=== PATIENT | female | born 1980 | race Caucasian/White ===

== ENCOUNTER → 2017-05-14 | Outpatient (CLI) | payer OTHER ==
[2016-03-28 09:40] VITALS: BP 108/81
[~2017-05-14] MED LIST: ALPR0.5T PO; MONT10TA9 PO; TAMS0.4C97 PO
--- NOTE | 2017-05-14 10:30 | RAD ---
HYSTEROSALPINGOGRAPHY, 05/14/2017 CLINICAL INDICATION: Prior tubal ligation with recent removal. PROCEDURE: The risks and benefits of hysterosalpingography were explained to the patient and written informed consent obtained. The external genitalia were prepped with Betadine. A speculum was introduced into the vagina and the cervix identified. After preparation with Betadine, a balloon tip catheter was placed through the cervical os and the balloon inflated just inside the endometrial cavity. Fluoroscopic spot images were obtained as water-soluble contrast was infused through the catheter. 5 cc of contrast were utilized. COMPARISON: CT abdomen and pelvis 03/28/2016 4 fluoroscopic spot images were obtained. Findings: Initial air brush operator radiograph demonstrates catheter projected over the central pelvis. Early filling images demonstrate only thin opacification of the endometrial canal and in the right flow pain tube to the level of the mid isthmus. Late filling images demonstrate similar opacification of the endotracheal canal and right fallopian tube with no progression of contrast beyond the mid isthmus level on the right. Throughout the examination there is no opacification of the left lobe in tube or spilling of contrast into the peritoneal cavity on either side. Patient left the department in stable condition. Impression: 1. Faint opacification of the endometrial canal and right fallopian tube to the mid isthmus level without opacification of the distal right fallopian tube and no evidence of peritoneal cavity spilling. 2. No opacification of the left fallopian tube throughout the examination.
== END | disposition home or self-care (01) ==
LOC: RAD 08:07
PROVIDERS: ATTEND Obstetrics & Gynecology
DX: Z09 Encounter for follow-up examination after completed treatment for conditions other than malignant neoplasm (principal); Z98.51 Tubal ligation status
CPT/HCPCS: 58340; 74740

== ENCOUNTER → 2017-07-18 | Outpatient (CLI) | payer OTHER ==
[2016-03-28 09:40] VITALS: BP 108/81
--- NOTE | 2017-07-18 15:24 | RAD ---
CERVICAL SPINE 2-3V AP, lateral, odontoid Clinical Indication: RADICULAR PAIN IN THE LEFT ARM X 5 MTHS Comparison: None. Findings: The cervical spine is visualized to the level of C7. Slight reversal of the normal cervical lordosis. No listhesis. Vertebral body heights and disc spaces are maintained. No significant soft tissue abnormality. IMPRESSION: 1. No acute cervical fracture or malalignment. 2. Slight reversal of the normal cervical lordosis. No listhesis.
== END | disposition home or self-care (01) ==
LOC: DXRADRC 12:00
PROVIDERS: ATTEND Physician Assistant
DX: M79.2 Neuralgia and neuritis, unspecified (principal)
CPT/HCPCS: 72040

== ENCOUNTER 2017-11-30 14:30 | Emergency (ER) | payer OTHER ==
[2017-11-30] MEDS: IV NORMAL SALINE 1,000ML 1,000 ML IV ONE (15:07)
[2017-11-30] MEDS: ONDANSETRON PF 4 MG/2 ML VIAL. IV ONE (15:08)
[2017-11-30] MEDS: KETOROLAC 30 MG/ML VIAL. IV ONE (15:10)
[2017-11-30 15:24] LABS: BASO # 0.1 x10^3/uL (0.0-0.2); BASO % 1 % (0-3); EOS # 0.2 x10^3/uL (0.0-0.7); EOS % 2 % (0-3); HEMATOCRIT 43.1 % (36.0-47.0); HEMOGLOBIN 15.1 g/dL (12.0-15.5); LYMPH % 35 % (24-48); MEAN CORPUSCULAR HEMOGLOBIN 32 pg (25-35); MEAN CORPUSCULAR HGB CONC 35 g/dL (31-37); MEAN CORPUSCULAR VOLUME 92 fL (79-100); MONO # 0.7 x10^3/uL (0.0-1.1); MONO % 8 % (0-9); NEUT # 4.8 x10^3uL (1.8-7.7); NEUT % 55 % (31-73); PLATELET COUNT 318 x10^3/uL (140-400); RED BLOOD COUNT 4.71 x10^6/uL (3.50-5.40); RED CELL DISTRIBUTION WIDTH 12.9 % (11.5-14.5); WHITE BLOOD COUNT 8.7 x10^3/uL (4.0-11.0)
[2017-11-30 15:34] LABS: CALCIUM 9.1 mg/dL (8.5-10.1); CREATININE 0.9 mg/dL (0.6-1.0); GFR 70.8; POTASSIUM 3.8 mmol/L (3.5-5.1)
--- NOTE | 2017-11-30 16:20 | RAD ---
EXAM: CT abdomen/pelvis without contrast. HISTORY: Left flank pain, renal stones. TECHNIQUE: Computed tomography of the abdomen and pelvis was performed without intravenous contrast. COMPARISON: 03/28/2016. FINDINGS: Lung windows through the visualized portions of the bases reveal mild atelectasis. Bone windows reveal no suspicious lesions. There is a stable bone island within the left femoral head. The appendix is not inflamed. A small amount of free pelvic fluid is likely physiologic. The uterus and ovaries are unremarkable by noncontrast CT. There is no obstruction. The liver, gallbladder, pancreas, and adrenal glands are unremarkable. There are calcified granulomas in the spleen. There are no pathologically enlarged lymph nodes. There is a 2 mm calculus in the left renal interpolar region. There is also 2 mm calculus at the left ureterovesical junction with mild proximal hydroureter. There are no right renal or ureteral calculi. IMPRESSION: 1. 2 mm left ureterovesical junction calculus with mild proximal obstructive findings. 2. 2 mm left renal calculus. *One or more of the following individualized dose reduction techniques were utilized for this examination: 1. Automated exposure control. 2. Adjustment of the mA and/or kV according to patient size. 3. Use of iterative reconstruction technique.
[2017-11-30] MEDS: HYDROmorphone PF 1 MG/ML DISP.SYRIN IV ONE (16:26)
[2017-11-30] MEDS ORDERED: TAMS0.4C97 PO (16:41)
[2017-11-30] MEDS ORDERED: ONDA4TAB10 SL (16:41)
[2017-11-30] MEDS ORDERED: HYDR-971 PO (16:41)
--- NOTE | 2017-11-30 16:41 | PHYS DOC ---
Past History Past Medical History: Kidney Stones Past Surgical History: Tubal ligation Smoking: Cigarettes Alcohol Use: None Drug Use: Marijuana Adult General Chief Complaint Chief Complaint: BACK PAIN OR INJURY HPI HPI Patient is a 37 year old F who presents with intermittent sharp left flank pain associated with blood in her urine. She has had previous kidney stones and feels that this pain is similar to her previous episodes. She also describes nausea. She has no other associated symptoms. She has no other exacerbating or relieving factors. Review of Systems Review of Systems Constitutional: Denies fever or chills [] Eyes: Denies change in visual acuity, redness, or eye pain [] HENT: Denies nasal congestion or sore throat [] Respiratory: Denies cough or shortness of breath [] Cardiovascular: No additional information not addressed in HPI [] GI: Denies abdominal pain, vomiting, bloody stools or diarrhea [] : Denies dysuria or hematuria [] Musculoskeletal: Negative except history of present illness Integument: Denies rash or skin lesions [] Neurologic: Denies headache, focal weakness or sensory changes [] Endocrine: Denies polyuria or polydipsia [] All other systems were reviewed and found to be within normal limits, except as documented in this note. Family History Family History No pertinent family medical history was reported Current Medications Current Medications Current Medications Medications (Trade) Dose Ordered Sig/[facility] Start Time Stop Time Status Last Admin Dose Admin Fentanyl Citrate (Fentanyl 2ml Vial) 50 mcg 1X ONCE 11/30/17 16:00 11/30/17 16:01 DC 11/30/17 15:49 50 MCG Hydromorphone HCl (Dilaudid) 0.5 mg 1X ONCE 11/30/17 16:30 11/30/17 16:31 DC 11/30/17 16:26 0.5 MG Ketorolac Tromethamine (Toradol) 30 mg 1X ONCE 11/30/17 15:00 11/30/17 15:12 DC 11/30/17 15:10 30 MG Ondansetron HCl (Zofran) 4 mg 1X ONCE 11/30/17 15:00 11/30/17 15:12 DC 11/30/17 15:08 4 MG Sodium Chloride 1,000 ml @ 1,000 mls/hr 1X ONCE 11/30/17 15:00 11/30/17 15:59 DC 11/30/17 15:07 1,000 MLS/HR Tamsulosin HCl (Flomax) 0.4 mg 1X ONCE 11/30/17 16:45 11/30/17 16:46 Allergies Allergies Allergies Coded Allergies Type Severity Reaction Last Updated Verified No Known Drug Allergies 03/16/14 No Physical Exam Physical Exam Constitutional: Well developed, well nourished, no acute distress, non-toxic appearance. [] Moderate distress with painful episodes HENT: Normocephalic, atraumatic, Eyes: PERRLA, EOMI, conjunctiva normal, no discharge. [] Neck: Normal range of motion, no tenderness, supple, no stridor. [] Cardiovascular:Heart rate regular rhythm Lungs & Thorax: Bilateral breath sounds clear to auscultation [] Abdomen: Bowel sounds normal, soft, no tenderness, no masses, no pulsatile masses. [] Skin: Warm, dry, no erythema, no rash. [] Back: No tenderness, no CVA tenderness. [] Extremities: No tenderness, no cyanosis, no clubbing, ROM intact, no edema. [] Neurologic: Alert and oriented X 3, normal motor function, normal sensory function, no focal deficits noted. [] Psychologic: Affect normal, judgement normal, mood normal. [] Current Patient Data Vital Signs Vital Signs Date Time Temp Pulse Resp B/P (MAP) Pulse Ox O2 Delivery O2 Flow Rate FiO2 11/30/17 14:40 97.7 109 18 97 Room Air Lab Results Laboratory Tests Test 11/30/17 15:00 11/30/17 15:08 POC Urine HCG, Qualitative hcg negative (Negative) White Blood Count 8.7 x10^3/uL (4.0-11.0) Red Blood Count 4.71 x10^6/uL (3.50-5.40) Hemoglobin 15.1 g/dL (12.0-15.5) Hematocrit 43.1 % (36.0-47.0) Mean Corpuscular Volume 92 fL (79-100) Mean Corpuscular Hemoglobin 32 pg (25-35) Mean Corpuscular Hemoglobin Concent 35 g/dL (31-37) Red Cell Distribution Width 12.9 % (11.5-14.5) Platelet Count 318 x10^3/uL (140-400) Neutrophils (%) (Auto) 55 % (31-73) Lymphocytes (%) (Auto) 35 % (24-48) Monocytes (%) (Auto) 8 % (0-9) Eosinophils (%) (Auto) 2 % (0-3) Basophils (%) (Auto) 1 % (0-3) Neutrophils # (Auto) 4.8 x10^3uL (1.8-7.7) Lymphocytes # (Auto) 3.0 x10^3/uL (1.0-4.8) Monocytes # (Auto) 0.7 x10^3/uL (0.0-1.1) Eosinophils # (Auto) 0.2 x10^3/uL (0.0-0.7) Basophils # (Auto) 0.1 x10^3/uL (0.0-0.2) Sodium Level 138 mmol/L (136-145) Potassium Level 3.8 mmol/L (3.5-5.1) Chloride Level 102 mmol/L (98-107) Carbon Dioxide Level 26 mmol/L (21-32) Anion Gap 10 (6-14) Blood Urea Nitrogen 15 mg/dL (7-20) Creatinine 0.9 mg/dL (0.6-1.0) Estimated GFR (Cockcroft-Gault) 70.8 Glucose Level 97 mg/dL (70-99) Calcium Level 9.1 mg/dL (8.5-10.1) EKG EKG [] Radiology/Procedures Radiology/Procedures CT abdomen and pelvis without contrast Impressions: 2 mm kidney stone at the left UVJ Course & Med Decision Making Course & Med Decision Making Pertinent Labs and Imaging studies reviewed. (See chart for details) [] Dragon Disclaimer Dragon Disclaimer This electronic medical record was generated, in whole or in part, using a voice recognition dictation system. Departure Departure: Impression: Primary Impression: Ureterolithiasis Disposition: 01 HOME, SELF-CARE Condition: STABLE Referrals: DELORES YBARRA (PCP) Patient Instructions: Kidney Stones Additional Instructions: Maria Teresa was seen in the emergency department for flank pain. No emergency medical condition was found on history or physical exam. She did have normal labs and imaging suggested 2 mm stone on the left side. She is given prescriptions for pain medication, nausea medication and Flomax. She is advised to return to the emergency room if she develops new or worsening symptoms. She was also advised follow-up with her primary care doctor as needed for further management. Scripts Ondansetron (ZOFRAN ODT) 4 Mg Tab.rapdis 1 TAB SL Q8HRS, #15 TAB Prov: BUZZ MOCK MD 11/30/17 Hydrocodone Bit/Acetaminophen (NORCO 5-325 TABLET) 1 Each Tablet 1 TAB PO TID for 3 Days, #9 TAB Prov: BUZZ MOCK MD 11/30/17 Tamsulosin Hcl (FLOMAX) 0.4 Mg Cap.er.24h 1 CAP PO DAILY for 14 Days, #14 CAP 11 Refills Prov: BUZZ MOCK MD 11/30/17 BUZZ MOCK MD Nov 30, 2017 16:41
[2017-11-30 16:52] VITALS: BP 118/89
[2017-11-30] MEDS: TAMSULOSIN 0.4 MG CAP.ER.24H. PO ONE (16:53)
== END 2017-11-30 17:00 | disposition home or self-care (01) ==
LOC: ER 14:30
DX: N20.2 Calculus of kidney with calculus of ureter (principal); F17.210 Nicotine dependence, cigarettes, uncomplicated; F12.10 Cannabis abuse, uncomplicated; Z87.442 Personal history of urinary calculi
CPT/HCPCS: 36415; 74176; 80048; 81025; 85025; 96361; 96374; 96375; 99285; J1170; J1885; J2405; J3010; J7030

== ENCOUNTER → 2019-03-17 | Outpatient (CLI) | payer OTHER ==
[~2019-03-17] MED LIST changes: +HYDR-3165 PO; +ONDA4TAB10 SL
--- NOTE | 2019-03-17 14:16 | RAD ---
Examination: Ultrasound pelvis HISTORY: History of pain prior to menses COMPARISON: None available. FINDINGS: The uterus measures 8.2 x 4.4 x 3.6 cm. Small nabothian cysts identified in the cervix. The right ovary measures 3.8 x 2.3 x 1.9 cm. The left ovary measures 5.6 x 3.4 x 2.2 cm. Blood flow identified in the right and left ovaries. There is a cystic structure identified in the left ovary measuring 1.9 cm. By 1.6 cm cyst identified in the right ovary. Minimal amount of fluid identified in the endometrium. IMPRESSION: 1. Cystic structures identified in the right and left ovaries probably follicles or small cysts. 2. Minimal fluid identified in the endometrium. Electronically signed by: Yaya Tipton MD (03/17/2019 2:13 PM) [place] [id number]
== END | disposition home or self-care (01) ==
LOC: US 09:22
PROVIDERS: ATTEND Obstetrics & Gynecology
DX: N88.8 Other specified noninflammatory disorders of cervix uteri (principal)
CPT/HCPCS: 76830; 76856

== ENCOUNTER 2019-05-07 07:02 | Emergency (ER) | payer OTHER ==
[~2019-05-07] VITALS: Ht 165.1 cm; Wt 85.0 kg
[~2019-05-07 07:02] MED LIST changes: +MONT10TA80 PO; -MONT10TA9 PO
--- NOTE | 2019-05-07 07:34 | PHYS DOC ---
Past History Past Medical History: Kidney Stones Past Surgical History: Tubal ligation Smoking: Cigarettes Alcohol Use: None Drug Use: Marijuana Adult General Chief Complaint Chief Complaint: VAGINAL BLEEDING HPI HPI 38-year-old female presents with vaginal bleeding. The patient had a hysterectomy and days ago. She had not had any postsurgical bleeding until yesterday. The amount of bleeding seems to be increasing. She is going through 1 super pad every hour to hour and a half at this time. The bleeding is bright red. She has been in contact with her surgeon, Dr. Brand. A CBC was performed yesterday. her Sunday told the patient he would like that repeated in the ED. The patient has a moderate cramping pain as well that has increased throughout the night. She is not sure if she's had a fever, but has had chills. Review of Systems Review of Systems Constitutional: Denies fever or chills [] Eyes: Denies change in visual acuity, redness, or eye pain [] HENT: Denies nasal congestion or sore throat [] Respiratory: Denies cough or shortness of breath [] Cardiovascular: No additional information not addressed in HPI [] GI: Lower abdominal pain. Denies nausea, vomiting, bloody stools or diarrhea [] : Vaginal bleeding [] Musculoskeletal: Denies back pain or joint pain [] Integument: Denies rash or skin lesions [] Neurologic: Denies headache, focal weakness or sensory changes [] Endocrine: Denies polyuria or polydipsia [] All other systems were reviewed and found to be within normal limits, except as documented in this note. Allergies Allergies Allergies Coded Allergies Type Severity Reaction Last Updated Verified No Known Drug Allergies 03/16/14 No Physical Exam Physical Exam Constitutional: Well developed, well nourished, mild acute distress, non-toxic appearance. [] HENT: Normocephalic, atraumatic, bilateral external ears normal, oropharynx moist, no oral exudates, nose normal. [] Eyes: PERRLA, EOMI, conjunctiva normal, no discharge. [] Neck: Normal range of motion, no tenderness, supple, no stridor. [] Cardiovascular:Heart rate regular rhythm, no murmur [] Lungs & Thorax: Bilateral breath sounds clear to auscultation [] Abdomen: Bowel sounds normal, soft, lower abdominal tenderness, no masses, no pulsatile masses. [] Skin: Warm, dry, no erythema, no rash. [] Back: No tenderness, no CVA tenderness. [] Extremities: No tenderness, no cyanosis, no clubbing, ROM intact, no edema. [] Neurologic: Alert and oriented X 3, normal motor function, normal sensory function, no focal deficits noted. [] Psychologic: Affect normal, judgement normal, mood normal. : [] EKG EKG [] Radiology/Procedures Radiology/Procedures [] Impressions: EXAM: ULTRASOUND PELVIS INDICATION: Hysterectomy and left oophorectomy 04/28/2019 COMPARISON: 03/17/2019 TECHNIQUE: Transabdominal sonography was performed. FINDINGS: There has been a hysterectomy. Within the expected operative bed there is a 9.6 x 8 x 7 cm hypoechoic structure with layering solid component and internal septations possibly complex fluid collection such as hematoma. No internal vascularity. The right ovary is not seen. IMPRESSION: 1. Pelvic collection measuring up to 9.6 cm with apparent layering internal echoes and internal septations may represent a complex collection such as hematoma. Abscess is not entirely excluded. This can be further assessed by CT as clinically indicated. Electronically signed by: Dakota Mooney MD (05/07/2019 9:02 AM) [facility] DICTATED AND SIGNED BY: DAKOTA MOONEY MD DATE: 05/07/19901 CC: AYUSH MARTINEZ DO; STEPHAN FALK MD ~ Course & Med Decision Making Course & Med Decision Making Pertinent Labs and Imaging studies reviewed. (See chart for details) The patient's hemoglobin has improved since yesterday. It is 10.3 today and it was 10.1 yesterday. She does not have a white count. She does not have a fever. Infection seems unlikely. I discussed the case with her surgeon, Dr. Brand and she has advised ultrasound. [id number] was performed and a large mass in the pelvis was found likely hematoma. This was Dr. Brand's suspicion due to the complex surgery was required for this patient. She has advised the patient can be discharged only followed closely by her office. I will give the patient a copy of her ultrasound for her records. She is stable for discharge at this time. [] Dragon Disclaimer Dragon Disclaimer This electronic medical record was generated, in whole or in part, using a voice recognition dictation system. Departure Departure: Impression: Primary Impression: Hematoma of pelvis Disposition: 01 HOME, SELF-CARE Condition: STABLE Referrals: STEPHAN FALK MD (PCP) Patient Instructions: Hematoma, [id number] AYUSH MARTINEZ DO May 07, 2019 07:34
[2019-05-07 08:02] LABS: BASO % 0 % (0-3); EOS # 0.1 x10^3/uL (0.0-0.7); EOS % 2 % (0-3); HEMATOCRIT 30.1 % (36.0-47.0); HEMOGLOBIN 10.3 g/dL (12.0-15.5); LYMPH # 1.4 x10^3/uL (1.0-4.8); LYMPH % 14 % (24-48); MEAN CORPUSCULAR HEMOGLOBIN 32 pg (25-35); MEAN CORPUSCULAR HGB CONC 34 g/dL (31-37); MEAN CORPUSCULAR VOLUME 95 fL (79-100); MONO # 0.9 x10^3/uL (0.0-1.1); MONO % 9 % (0-9); NEUT # 7.4 x10^3uL (1.8-7.7); NEUT % 75 % (31-73); PLATELET COUNT 356 x10^3/uL (140-400); RED BLOOD COUNT 3.18 x10^6/uL (3.50-5.40); RED CELL DISTRIBUTION WIDTH 13.4 % (11.5-14.5); WHITE BLOOD COUNT 9.9 x10^3/uL (4.0-11.0)
[2019-05-07] MEDS: ONDANSETRON PF 4 MG/2 ML VIAL. IV ONE (08:05)
[2019-05-07] MEDS: MORPHINE SULFATE 2 MG/ML DISP.SYRIN. IV ONE (08:05)
[2019-05-07 08:15] LABS: ALBUMIN 3.2 g/dL (3.4-5.0); ALBUMIN/GLOBULIN RATIO 0.8 (1.0-1.7); BACTERIA,URINE FEW /HPF (0-FEW); BILIRUBIN,URINE NEG (NEG); CLARITY,URINE HAZY; COLOR,URINE PINK; CREATININE 0.6 mg/dL (0.6-1.0); GFR 112.5; GLUCOSE,URINE NEG (NEG); NITRITE,URINE NEG (NEG); TOTAL BILIRUBIN 0.4 mg/dL (0.2-1.0); TOTAL PROTEIN 7.2 g/dL (6.4-8.2); UROBILINOGEN,URINE 0.2 mg/dL (0.2 mg/dL)
[2019-05-07 08:16] LABS: SQUAMOUS EPITHELIAL CELL,UR FEW /LPF
[2019-05-07] MEDS: IV NORMAL SALINE 1,000ML 1,000 ML IV ONE (08:21)
--- NOTE | 2019-05-07 09:05 | RAD ---
EXAM: ULTRASOUND PELVIS INDICATION: Hysterectomy and left oophorectomy 04/28/2019 COMPARISON: 03/17/2019 TECHNIQUE: Transabdominal sonography was performed. FINDINGS: There has been a hysterectomy. Within the expected operative bed there is a 9.6 x 8 x 7 cm hypoechoic structure with layering solid component and internal septations possibly complex fluid collection such as hematoma. No internal vascularity. The right ovary is not seen. IMPRESSION: 1. Pelvic collection measuring up to 9.6 cm with apparent layering internal echoes and internal septations may represent a complex collection such as hematoma. Abscess is not entirely excluded. This can be further assessed by CT as clinically indicated. Electronically signed by: Dakota Bull MD (05/07/2019 9:02 AM) [facility]
[2019-05-07] MEDS ORDERED: HYDR-3165 PO (09:29)
[2019-05-07] MEDS: MORPHINE SULFATE 4 MG/ML DISP.SYRIN. IV ONE (09:41)
[2019-05-07 10:49] VITALS: BP 128/78
== END 2019-05-07 10:00 | disposition home or self-care (01) ==
LOC: ER 07:02
DX: N94.89 Other specified conditions associated with female genital organs and menstrual cycle (principal); F17.210 Nicotine dependence, cigarettes, uncomplicated; Z87.442 Personal history of urinary calculi; Z98.51 Tubal ligation status; Z90.710 Acquired absence of both cervix and uterus
CPT/HCPCS: 36415; 76856; 80053; 81001; 85025; 96374; 96375; 96376; 99285; J2270; J2405; J7030

== ENCOUNTER 2019-05-08 12:30 | Emergency (ER) | payer OTHER ==
[~2019-05-08] VITALS: Ht 165.1 cm; Wt 85.0 kg
[2019-05-08] MEDS ORDERED: MORPHINE SULFATE 4 MG/ML DISP.SYRIN. IV ONE ×2 (13:00→14:45)
[2019-05-08] MEDS ORDERED: IV NORMAL SALINE 1,000ML 1,000 ML IV ONE (13:00)
[2019-05-08] MEDS ORDERED: ONDANSETRON PF 4 MG/2 ML VIAL. IV ONE (13:00)
--- NOTE | 2019-05-08 13:25 | PHYS DOC ---
Past History Past Medical History: No Pertinent History Past Surgical History: Hysterectomy, Tonsillectomy Smoking: Cigarettes Alcohol Use: None Drug Use: None Adult General Chief Complaint Chief Complaint: VAGINAL BLEEDING HPI HPI 38-year-old female returns to the emergency room with continued vaginal bleedin g. I saw this patient in the ED yesterday. She comes in today because she woke up with a pool of blood under her body. It was coming from her vagina. It continues to be bright red. She understands that she has a hematoma from her recent hysterectomy, but is just concerned about the amount of bleeding. She wanted to make sure her hemoglobin wasn't dropping. A she has also continued to have pain with this and has been taking Percocet as prescribed. He denies any new symptoms or trauma. Denies fever or chills. Review of Systems Review of Systems Constitutional: Denies fever or chills [] Eyes: Denies change in visual acuity, redness, or eye pain [] HENT: Denies nasal congestion or sore throat [] Respiratory: Denies cough or shortness of breath [] Cardiovascular: No additional information not addressed in HPI [] GI: Lower abdominal pain. Denies nausea, vomiting, bloody stools or diarrhea [] : vaginal bleeding [] Musculoskeletal: Denies back pain or joint pain [] Integument: Denies rash or skin lesions [] Neurologic: Denies headache, focal weakness or sensory changes [] Endocrine: Denies polyuria or polydipsia [] All other systems were reviewed and found to be within normal limits, except as documented in this note. Current Medications Current Medications Current Medications Medications (Trade) Dose Ordered Sig/[facility]ang Start Time Stop Time Status Last Admin Dose Admin Morphine Sulfate (Morphine 4mg Syringe) 4 mg 1X ONCE 05/08/19 13:00 05/08/19 13:01 DC Ondansetron HCl (Zofran) 4 mg 1X ONCE 05/08/19 13:00 05/08/19 13:01 DC Sodium Chloride 1,000 ml @ 1,000 mls/hr 1X ONCE 05/08/19 13:00 05/08/19 13:59 Allergies Allergies Allergies Coded Allergies Type Severity Reaction Last Updated Verified No Known Drug Allergies 05/07/19 No Physical Exam Physical Exam Constitutional: Well developed, well nourished, no acute distress, non-toxic appearance. [] HENT: Normocephalic, atraumatic, bilateral external ears normal, oropharynx moist, no oral exudates, nose normal. [] Eyes: PERRLA, EOMI, conjunctiva normal, no discharge. [] Neck: Normal range of motion, no tenderness, supple, no stridor. [] Cardiovascular:Heart rate regular rhythm, no murmur [] Lungs & Thorax: Bilateral breath sounds clear to auscultation [] Abdomen: Bowel sounds normal, soft, lower abdominal tenderness, no masses, no pulsatile masses. [] Skin: Warm, dry, no erythema, no rash. [] Back: No tenderness, no CVA tenderness. [] Extremities: No tenderness, no cyanosis, no clubbing, ROM intact, no edema. [] Neurologic: Alert and oriented X 3, normal motor function, normal sensory function, no focal deficits noted. [] Psychologic: Affect normal, judgement normal, mood normal. : deferred due to patient preference and OB request from yesterday [] EKG EKG [] Radiology/Procedures Radiology/Procedures [] Course & Med Decision Making Course & Med Decision Making Pertinent Labs and Imaging studies reviewed. (See chart for details) The patient's labs are unremarkable. Her hemoglobin is walking steady at 10.2. This bleeding is likely due to the hematoma. I have given patient 4 mg of morphine twice due to her pain. She has oral pain medication for home. She is stable for discharge at this time. Dragon Disclaimer Dragon Disclaimer This electronic medical record was generated, in whole or in part, using a voice recognition dictation system. Departure Departure: Impression: Primary Impression: Abdominal hematoma Additional Impression: Vaginal bleeding Disposition: 01 HOME, SELF-CARE Condition: STABLE Referrals: STEPHAN FALK MD (PCP) Patient Instructions: Hematoma, [id number] Problem Qualifiers AYUSH MARTINEZ DO May 08, 2019 13:25
[2019-05-08 13:38] LABS: BASO % 0 % (0-3); EOS # 0.1 x10^3/uL (0.0-0.7); EOS % 1 % (0-3); HEMATOCRIT 29.7 % (36.0-47.0); HEMOGLOBIN 10.2 g/dL (12.0-15.5); LYMPH # 1.3 x10^3/uL (1.0-4.8); LYMPH % 14 % (24-48); MEAN CORPUSCULAR HEMOGLOBIN 32 pg (25-35); MEAN CORPUSCULAR HGB CONC 34 g/dL (31-37); MEAN CORPUSCULAR VOLUME 94 fL (79-100); MONO # 0.9 x10^3/uL (0.0-1.1); MONO % 9 % (0-9); NEUT # 7.2 x10^3uL (1.8-7.7); NEUT % 76 % (31-73); PLATELET COUNT 363 x10^3/uL (140-400); RED BLOOD COUNT 3.17 x10^6/uL (3.50-5.40); RED CELL DISTRIBUTION WIDTH 13.5 % (11.5-14.5); WHITE BLOOD COUNT 9.5 x10^3/uL (4.0-11.0)
[2019-05-08 13:51] LABS: ALBUMIN/GLOBULIN RATIO 0.7 (1.0-1.7); CALCIUM 9.2 mg/dL (8.5-10.1); CREATININE 0.6 mg/dL (0.6-1.0); GFR 112.5; POTASSIUM 3.9 mmol/L (3.5-5.1); TOTAL BILIRUBIN 0.4 mg/dL (0.2-1.0); TOTAL PROTEIN 7.2 g/dL (6.4-8.2)
[2019-05-08 15:20] VITALS: BP 133/80
== END 2019-05-08 15:20 | disposition home or self-care (01) ==
LOC: ER 12:30
DX: K91.870 Postprocedural hematoma of a digestive system organ or structure following a digestive system procedure (principal); N93.9 Abnormal uterine and vaginal bleeding, unspecified; F17.210 Nicotine dependence, cigarettes, uncomplicated; Z90.710 Acquired absence of both cervix and uterus
CPT/HCPCS: 36415; 80053; 85025; 96374; 96375; 96376; 99284; J2270; J2405; J7030

== ENCOUNTER → 2019-05-17 | Outpatient (CLI) | payer MEDICAID ==
[2019-05-08 15:20] VITALS: BP 133/80
[2019-05-17 11:30] LABS: BASO % 0 % (0-3); EOS # 0.2 x10^3/uL (0.0-0.7); EOS % 2 % (0-3); HEMATOCRIT 32.3 % (36.0-47.0); HEMOGLOBIN 10.9 g/dL (12.0-15.5); LYMPH % 20 % (24-48); MEAN CORPUSCULAR HEMOGLOBIN 31 pg (25-35); MEAN CORPUSCULAR HGB CONC 34 g/dL (31-37); MEAN CORPUSCULAR VOLUME 91 fL (79-100); MONO # 0.7 x10^3/uL (0.0-1.1); MONO % 7 % (0-9); NEUT # 6.8 x10^3uL (1.8-7.7); NEUT % 71 % (31-73); PLATELET COUNT 660 x10^3/uL (140-400); RED BLOOD COUNT 3.54 x10^6/uL (3.50-5.40); RED CELL DISTRIBUTION WIDTH 14.4 % (11.5-14.5)
[2019-05-17 11:43] LABS: WHITE BLOOD COUNT 9.6 x10^3/uL (4.0-11.0)
--- NOTE | 2019-05-17 17:15 | RAD ---
PELVIS LIMITED OR FOLLOW UP History: Follow-up hematoma. Comparison: May 07, 2019 ultrasound and March 17, 2019 ultrasound. Technique: Grayscale and color Doppler imaging of the pelvis was performed using transabdominal and transvaginal technique. Findings: Recent hysterectomy and left oophorectomy. Right ovary not identified. Complex fluid collection within the inferior pelvis measures 9.6 x 4.9 x 4.7 cm (compared to 9.6 x 8.2 x 4.8 cm). There is no internal Doppler flow. IMPRESSION: 1. Complicated fluid collection within the midline pelvis, slightly decreased compared to prior. Recommend continued follow-up. If persistent clinical concern, CT with contrast can further evaluate. 2. Status post hysterectomy. Electronically signed by: Andrew Rogers DO (05/17/2019 5:12 PM) [id number]
== END | disposition home or self-care (01) ==
LOC: US 10:16
PROVIDERS: ATTEND Obstetrics & Gynecology
DX: M96.841 Postprocedural hematoma of a musculoskeletal structure following other procedure (principal); Z90.710 Acquired absence of both cervix and uterus
CPT/HCPCS: 36415; 76857; 85025

== ENCOUNTER 2021-10-10 00:47 | Emergency (ER) | payer MEDICAID ==
[~2021-10-10] VITALS: Ht 165.1 cm; Wt 71.5 kg
--- NOTE | 2021-10-10 01:05 | PHYS DOC ---
Past History Past Medical History: No Pertinent History Additional Past Medical Histor: adhd, Past Surgical History: Hysterectomy, Tonsillectomy Additional Past Surgical Histo: adenoidectomy Smoking: Cigarettes Alcohol Use: None Drug Use: None Adult General Chief Complaint Chief Complaint: FLANK PAIN HPI HPI Patient is a 41-year-old female with a past medical history significant for multiple episodes of kidney stones who presents with a chief complaint of left- sided flank pain which worsened over the course of the day, 6 out of 10, sharp in nature which feels like similar episodes of stones. Denies any fevers, chest pain, shortness of breath, nausea, vomiting, dysuria, hematuria. Review of Systems Review of Systems Review of systems otherwise unremarkable except noted in HPI Allergies Allergies Allergies Coded Allergies Type Severity Reaction Last Updated Verified No Known Drug Allergies 10/10/21 No Physical Exam Physical Exam Constitutional: Well developed, well nourished, no acute distress, non-toxic appearance. [] HENT: Normocephalic, atraumatic, bilateral external ears normal, oropharynx mo ist, no oral exudates, nose normal. [] Eyes:conjunctiva normal, no discharge. [] Neck: Normal range of motion, no tenderness, supple, no stridor. [] Cardiovascular:Heart rate regular rhythm, no murmur [] Lungs & Thorax: Bilateral breath sounds clear to auscultation [] Abdomen: soft, no tenderness, no masses, no pulsatile masses. [] Skin: Warm, dry, no erythema, no rash. [] Back: No tenderness, no CVA tenderness. [] Extremities: No tenderness, no cyanosis, no clubbing, ROM intact, no edema. [] Neurologic: Alert and oriented X 3, normal motor function, normal sensory function, no focal deficits noted. [] Psychologic: Affect normal, judgement normal, mood normal. [] Current Patient Data Vital Signs Vital Signs Date Time Temp Pulse Resp B/P (MAP) Pulse Ox O2 Delivery O2 Flow Rate FiO2 10/10/21 00:59 98.5 91 18 143/93 (110) 98 EKG EKG [] Radiology/Procedures Radiology/Procedures [] IMPRESSION: 1. No acute process. 2. 2 mm nonobstructing left renal calculus. No ureteral or bladder calculi or hydronephrosis. 3. The appendix is negative. Electronically signed by: Raghavendra Corado MD (10/10/2021 2:07 AM) [facility] Heart Score C/O Chest Pain: No Risk Factors: Risk Factors: DM, Current or recent (<one month) smoker, HTN, HLP, family history of CAD, obesity. Risk Scores: Risk Factors: DM, Current or recent (<one month) smoker, HTN, HLP, family history of CAD, obesity. Course & Med Decision Making Course & Med Decision Making Patient is a 41-year-old female presents with left-sided flank pain Vital signs not concerning. Physical exam noted above. Given pain medicine. Given nausea medicine. Urinalysis not concerning. Patient with hysterectomy. CT with a 2 mm nonobstructing stone. Discussed all findings with patient. Discussed pain management at home. Advised to follow-up with primary care physician. Gave return precautions to the ED. Patient grateful, verbalized understanding and agreed with plan of discharge. Dragon Disclaimer Dragon Disclaimer This electronic medical record was generated, in whole or in part, using a voice recognition dictation system. Departure Departure: Impression: Primary Impression: Kidney stone Disposition: HOME / SELF CARE / HOMELESS Condition: GOOD Referrals: STEPHAN FALK MD (PCP) Patient Instructions: Diet for Kidney Stones, Kidney Stones Additional Instructions: Thanks for coming into the emergency department tonight and allowing us to take care of you. Please read the attached information carefully to go back over some of the things we discussed. You can begin a Tylenol, and ibuprofen regimen tomorrow as needed as well as Benadryl. Please follow-up with your primary care physician in the morning to update on ED visit. Please come back with new or concerning symptoms as discussed. IAIN MCCABE MD Oct 10, 2021 01:05
[2021-10-10] MEDS ORDERED: KETOROLAC 15 MG/ML VIAL. IM ONE (01:15)
[2021-10-10] MEDS ORDERED: KETOROLAC 30 MG/ML VIAL. IM ONE (01:15)
[2021-10-10] MEDS ORDERED: ONDANSETRON ODT 4 MG TAB.RAPDIS PO ONE (01:15)
[2021-10-10 01:52] LABS: BILIRUBIN,URINE SMALL (NEG); CLARITY,URINE CLOUDY; COLOR,URINE YELLOW; GLUCOSE,URINE NEG (NEG)
[2021-10-10 01:53] LABS: AMORPHOUS SEDIMENT,UR PRESENT /HPF; BACTERIA,URINE FEW /HPF (0-FEW); NITRITE,URINE NEG (NEG); RBC,URINE OCC /HPF (0-2); SQUAMOUS EPITHELIAL CELL,UR FEW /LPF; UROBILINOGEN,URINE 0.2 mg/dL (0.2 mg/dL); WBC,URINE OCC /HPF (0-4)
--- NOTE | 2021-10-10 02:10 | RAD ---
CT abdomen and pelvis without contrast PQRS statement: CT scans at this facility use dose reduction including either automated exposure cont rol, iterative reconstructions, and /or weight based radiation dosing via mA and kV modification when appropriate to reduce radiation dose to as low as reasonably achievable. HISTORY: Flank pain. COMPARISON: CT abdomen November 30, 2017. Abdomen findings: Right middle lobe 2 mm nodule is stable, benign. Liver, gallbladder, pancreas, adre nals, spleen and right kidney are unremarkable. Although a left renal 2 mm calculus. No ureteral calc elina, hydronephrosis or perinephric edema. Small focus of calcified plaque of the abdominal aorta. Morrison creas negative. No obstruction or inflammation of the GI tract. No abdominal fluid. Pelvis findings: Hysterectomy. Left ovary is absent. Right ovary, bladder, rectum and bones are unrem arkable. No bladder calculi. IMPRESSION: 1. No acute process. 2. 2 mm nonobstructing left renal calculus. No ureteral or bladder calculi or hydronephrosis. 3. The appendix is negative. Electronically signed by: Raghavendra Corado MD (10/10/2021 2:07 AM) [facility]
[2021-10-10] MEDS ORDERED: oxyCODONE/APAP 5/325 1 TAB TABLET PO ONE (02:15)
[2021-10-10] MEDS ORDERED: oxyCODONE/APAP 5/325 1 TAB TABLET ONE (02:17)
[2021-10-10 02:20] VITALS: BP 97/54
== END 2021-10-10 02:22 | disposition home or self-care (01) ==
LOC: ER 00:47
DX: N20.0 Calculus of kidney (principal); F17.210 Nicotine dependence, cigarettes, uncomplicated; Z87.442 Personal history of urinary calculi; Z90.710 Acquired absence of both cervix and uterus
CPT/HCPCS: 74176; 81001; 96372; 99284; J1885; J3010; Q0162